=== PATIENT | female | born 1965 | race Two or more races ===

== ENCOUNTER → 2017-02-06 | Day surgery (SDC) | payer BC ==
--- NOTE | 2017-02-09 12:40 | PATH ---
Surgical Pathology Report Patient Name: EDWIN AGRCIA [facility]. Rec. 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 Electronically Signed Abbie Medina M.D. Gross Description Received in formalin, labeled "left 2:00," are 5 manning-yellow, cylindrical portions of fibroadipose tissue ranging from 0.2-0.7 cm. in length and averaging 0.1 cm. in diameter. The specimen is submitted in toto in one cassette. Time to formalin fixation: Less than one minute Total formalin fixation time: Approximately 9 hours. /02/06/201702/06/2017
== END | disposition home or self-care (01) ==
LOC: JRADUS-SUR 08:01
PROC: 0HBU3ZX Excision of Left Breast, Percutaneous Approach, Diagnostic (ICD-10-PCS; principal; 2017-02-06)
DX: D24.2 Benign neoplasm of left breast (principal); N60.12 Diffuse cystic mastopathy of left breast
CPT/HCPCS: 19083; 87899; 88305-TC; A4648; G0206-TC